=== PATIENT | female | born 1950 | race Caucasian/White ===

== ENCOUNTER 2021-12-14 12:21 | Emergency (ER) | payer MEDICARE, OTHER, SELFPAY ==
[2021-12-14 12:28] VITALS: BP 167/79; PULSE 78; RESP 18; TEMP 36.5; O2SAT 98; BMI 27.8
[2021-12-14] MEDS: Cyclobenzaprine HCl 10 MG TABLET PO (13:41)
[2021-12-14] MEDS: Ketorolac Tromethamine 30 MG/ML VIAL IM (13:46)
--- NOTE | 2021-12-14 14:15 | ED.BACK ---
HPI - Back Pain/Injury General Chief Complaint: Back Pain/Injury Stated Complaint: neck back pain from strain unable to move head Time Seen by Provider: 12/14/21 13:01 Source: patient Mode of arrival: ambulatory Limitations: no limitations History of Present Illness HPI Narrative: 71-year-old female with past medical history of hypertension hyperlipidemia who is otherwise very healthy for her age, presents for us to drain in her upper back that she sustained 5 days ago. Patient was less lifting a huge a heavy pot while gardening and she felt her right middle back spasm. Every day the pain has progressed and is moving up into her neck and shoulders. The pain in her bilateral neck muscles was worse last night. Today she is driving from [facility] to [facility], and found that the pain became unbearable while sitting in the car and going over bumps in the car. The pain comes up and spasms in her shoulders and neck muscles, and creates a headache. She had a mild headache that started this morning, no visual changes, no focal weakness, no nausea or vomiting, no chest pain, no shortness of breath, no lightheadedness, no dizziness Related Data Previous Rx's Medication Instructions Recorded cyclobenzaprine 5 mg tablet 5 mg PO TID 5 days #15 tabs 12/14/21 ketorolac 10 mg tablet 10 mg PO Q6H 5 days #20 tabs 12/14/21 Allergies Allergy/AdvReac Type Severity Reaction Status Date / Time Sulfa (Sulfonamide Allergy Mild Hives Verified 12/14/21 12:27 Antibiotics) Review of Systems Constitutional: Constitutional: Denies body ache(s), Denies chills, Denies fatigue, Denies fever(s), Denies headache(s), Denies malaise and Denies weakness Eyes: Eyes: Denies diplopia ENT: Reports Normal hearing present, Denies vertigo, Denies dizziness, Denies otalgia, Denies headache(s), Denies mouth pain, Reports neck pain, Denies post nasal drip, Denies sinus pain, Denies sinus pressure, Denies sore throat and Denies throat swelling Cardiovascular: Cardiovascular: Denies chest pain, Denies syncope, Denies leg edema, Denies lightheadedness, Denies Loss of Consciousness, Denies palpitations and Denies dyspnea Respiratory: Respiratory: Denies chest congestion, Denies cough and Denies dyspnea Gastrointestinal: Gastrointestinal: Denies abdominal pain, Denies hematochezia, Denies constipation, Denies diarrhea and Denies vomiting Musculoskeletal: Musculoskeletal: Reports back pain, Reports neck pain, Denies numbness and Denies tingling Neurologic: Reports Normal hearing present, Denies Abnormal speech present, Denies confusion, Denies vertigo, Denies dizziness, Denies syncope, Denies headache(s), Denies numbness, Denies Sensory deficit (Neuro), Denies tingling and Denies weakness Psychiatric: Psychiatric: Denies anxiety, Denies confusion and Denies depression Endocrine: Endocrine: Denies fatigue and Denies palpitations Allergic/Immunologic: Allergic/Immunologic: Denies throat swelling PMFSH Social History Social History Advance Directives: No Advance Directives Information Provided: No Physical Exam Vital Signs: Vital Signs: Last Vital Signs Temp 97.7 F 12/14/21 12:28 Pulse 78 12/14/21 12:28 Resp 18 12/14/21 12:28 BP 167/79 H 12/14/21 12:28 Pulse Ox 98 12/14/21 12:28 O2 Del Method 12/14/21 12:28 BMI result Body Mass Index 27.8 Const: General: No confusion Nutritional Appearance: well nourished Orientation/consciousness: No confusion Limitations: no limitations HEENT: Head: Yes normal to inspection, Yes normocephalic and Yes atraumatic Ears: hearing grossly normal bilaterally, external ears normal, TM's normal bilaterally and EAC's normal General nose exam: Normal external nose present Face and sinus: Yes normal facial exam and Yes sinuses nontender Mouth: Normal oral and palatal mucosa present Throat: Yes posterior oropharynx normal Eyes: Conjunctivae: conjunctivae normal Pupils: Equal, round and reactive pupils present EOM: EOMs intact bilaterally and Nystagmus present Neck: Neck: Yes full ROM, Yes no lymphadenopathy and Yes supple Resp: Effort & Inspection: normal respiratory effort and able to speak in complete sentences Auscultation: clear to auscultation bilaterally, no crackles, no rales, no rhonchi and no wheezes Cardio: Rate: regular rate Rhythm: regular rhythm Heart sounds: S1 normal heart sound present and S2 normal heart sound present GI: Inspection: Yes normal to inspection Palpation (GI): Soft to palpation, nontender, no guarding and not rigid Percussion: Yes normal to percussion Auscultation: normal bowel sounds Back/Spine/Pelvis: Cervical Spine: normal cervical lordosis, cervical muscular tenderness, cervical spasm, No Cervical spine tenderness, No step off deformity and cervical ROM abnormal Thoracic/Lumbar Spine: thoraco-lumbar spasm on the right greater than left, No thoracic spinal tenderness and No lumbar spinal tenderness Skin: General skin exam: no rashes or lesions noted Neuro: General: No confusion Cranial nerves: Yes CN's II-XII intact bilaterally, Yes Facial sensation intact/muscles of mastication intact, Yes Equal, round and reactive pupils present, Yes Bilaterally intact EOM present, Yes Nystagmus not present, Yes Normal facial strength present, Yes Midline tongue present, Yes Normal hearing present, Yes Ability to bilaterally rotate head present, Yes Ability to bilaterally elevate shoulders present and Yes Nystagmus present Cognition (Neuro): normal cognition Speech: No Abnormal speech present Gait exam (Neuro): Normal gait present Motor exam (neuro): 5/5 motor strength present throughout and Pronator motor function not present Sensory Exam: No Sensory deficit (Neuro) Deep tendon reflexes (DTR's): Right brachioradialis reflex intensity grade: 1+, Left brachioradialis reflex intensity grade: 1+, Right patellar reflex intensity grade: 1+ and Left patellar reflex intensity grade: 1+ Coordination: [id number] test normal and [id number] test normal Pupils: Normal pupillary reactivity/response: bilateral Extrem: General: Yes normal to inspection and Yes full ROM Psych: Appearance: grossly normal Affect: normal affect Attitude: cooperative Thought process: Normal thought process present Course Course Course Narrative: 71-year-old female presents for 5 days upper back pain that has for the last 2 days progressed up into the muscles of her upper neck. Patient cannot turn her head due to pain. Associated headache. On exam, patient has normal vitals, is neurologically intact, is extremely tender to palpate over her cervical neck muscles. No cervical spine tenderness, no thoracic or lumbar spine tenderness. Patient is also tender in her paraspinous muscles on the right side. Because patient has no vertebral point tenderness, I do not think imaging is warranted. Treated with ketorolac and Flexeril Patient advised to return to emergency room if she has sudden weakness, visual changes, trouble walking, chest pain, shortness of breath, or any other new or concerning symptoms. Patient verbalized agreement and understanding of the plan Discharge Plan Discharge Clinical Impression: Muscular torticollis Patient Disposition: Home, Self-Care Additional Instructions: please fill the prescriptions and take them as prescribed. Please do not take any ibuprofen containing products while your taking ketorolac. Please have your primary care provider for follow-up appointment please return to emergency room if you have gait disturbance, visual changes, sudden one-sided weakness, chest pain, shortness of breath, or any other new or concerning symptoms Prescriptions: New cyclobenzaprine 5 mg tablet 5 mg PO TID 5 Days Qty: 15 0RF ketorolac 10 mg tablet 10 mg PO Q6H 5 Days Qty: 20 0RF
== END 2021-12-14 14:19 | disposition home or self-care (01) ==
PROVIDERS: Emergency Provider Emergency Medicine
DX: M43.6 Torticollis (principal); I10 Essential (primary) hypertension
CPT/HCPCS: 96372; 99283; 99284; J1885